=== PATIENT | male | born 1985 | race Two or more races ===

== ENCOUNTER → 2025-06-06 | Outpatient (CLI) | payer BC, SELFPAY ==
[2025-06-06 10:26] LABS: Basophils # (Auto) 0.0 Thou/mm3 (0.0-0.2); Basophils % (Auto) 0 % (0-2.5); Eosinophils # (Auto) 0.1 Thou/mm3 (0.0-0.5); Eosinophils % (Auto) 1 % (0-10); Hematocrit 44.3 % (41.0-53.0); Hemoglobin 15.5 g/dL (13.5-16.0); Immature Granulocytes Auto 0.05 Thou/mm3 (0.00-0.00); Lymphocytes # (Auto) 1.4 Thou/mm3 (1.0-4.8); Lymphocytes % (Auto) 19 % (10-50); Mean Corpuscular HGB Conc 35.0 g/dl (31.0-37.0); Mean Corpuscular Hemoglobin 29.8 pg (25.0-35.0); Mean Corpuscular Volume 85 fL (80-100); Monocytes # (Auto) 0.5 Thou/mm3 (0.0-0.8); Monocytes % (Auto) 6 % (0-12); Neutrophils # (Auto) 5.4 Thou/mm3 (1.8-7.7); Neutrophils % (Auto) 72 % (37-80); Nucleated Red Blood Cell # 0.00 Thou/mm3 (0.00-0.00); Nucleated Red Blood Cell % 0 /100 WBC (0); Platelet Count 236 Thou/mm3 (140-440); RDW Standard Deviation 38.9 fL (35.1-43.9); Red Blood Count 5.21 Miln/mm3 (4.50-5.90); White Blood Count 7.5 Thou/mm3 (3.8-10.6)
[2025-06-06 10:49] LABS: Alanine Aminotransferase 21 U/L (10-49); Albumin, Serum 4.4 gm/dL (3.5-5.0); Albumin/Globulin Ratio 2.1 (1.2-2.2); Alkaline Phosphatase 75 U/L (46-116); Amylase 89 U/L (30-118); Anion Gap 7 (7-16); Aspartate Amino Transferase 22 U/L (0-34); BUN/Creatinine Ratio 14 Ratio (12-20); Bilirubin,Total 0.5 mg/dL (0.3-1.2); Blood Urea Nitrogen 11 mg/dL (9-23); Calcium 9.9 mg/dL (8.3-10.6); Calcium (Corrected) 9.9 mg/dL (8.5-10.1); Carbon Dioxide 29.6 mMol/L (20.0-31.0); Chloride 104 mMol/L (98-107); Creatinine (Component) 0.8 mg/dL (0.6-1.3); Globulin 2.1 gm/dL (2.3-3.5); Glucose 94 mg/dL (74-106); Lipase 36 U/L (12-53); Osmolality,Calculated 280 (275-295); Potassium 4.8 mMol/L (3.4-5.1); Sodium 141 mMol/L (136-145); Total Protein 6.5 gm/dL (5.7-8.2); eGFR > 60 See Note
[2025-06-06 11:28] LABS: Urea Breath Test Positive (Negative)
== END | disposition home or self-care (01) ==
LOC: COPL 09:04
PROVIDERS: PCP Family Medicine; Referring Provider Physician Assistant; Visit Provider Physician Assistant
DX: K21.9 Gastro-esophageal reflux disease without esophagitis (principal); R10.9 Unspecified abdominal pain
CPT/HCPCS: 36415; 80053; 82150; 83013; 83014; 83690; 85025

== ENCOUNTER → 2025-07-02 | Outpatient (CLI) | payer BC, SELFPAY ==
--- NOTE | 2025-07-02 09:00 | XR_ITS ---
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 demonstrates large amounts of stool throughout the colon Patient swallowed thin barium with 17 spot fluoroscopic films of the esophagus and stomach Primary peristaltic esophageal waves Moderate intermittent gastroesophageal reflux There is no stricture the gastroesophageal junction No gastric mass deformity or ulceration There is mucosal fold thickening in the gastric antrum and pylorus No duodenal ulcer Fluoroscopy 0.4 minute radiation dose 47.6 milligray IMPRESSION: Moderate continuous gastroesophageal reflux There is no stricture at the gastroesophageal junction Findings most consistent with antral gastritis, clinical correlation advised
== END | disposition home or self-care (01) ==
LOC: SDIM 08:50
PROVIDERS: PCP Physician Assistant; Referring Provider Physician Assistant; Visit Provider Physician Assistant
DX: K21.9 Gastro-esophageal reflux disease without esophagitis (principal)
CPT/HCPCS: 74240; A4649

== ENCOUNTER → 2025-08-13 | Outpatient (CLI) | payer BC, SELFPAY ==
--- NOTE | 2025-08-13 10:00 | XR_ITS ---
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
== END | disposition home or self-care (01) ==
LOC: SDIM 09:41
PROVIDERS: PCP Physician Assistant; Referring Provider Physician Assistant; Visit Provider Physician Assistant
DX: K30 Functional dyspepsia (principal)
CPT/HCPCS: 74240; A4649

== ENCOUNTER → 2025-09-03 | Outpatient (CLI) | payer BC, SELFPAY ==
--- NOTE | 2025-09-03 11:00 | XR_ITS ---
Examination: Abdomen sonogram, complete Date and time of exam: September 03, 2025, 1116 hours INDICATIONS: Abdominal bloating beginning 1 year ago. Technique: Multiple real-time grayscale transabdominal sonographic images of the abdomen have been obtained. Findings: Normal gallbladder Normal common bile duct 0.2 cm Pancreaticoduodenal Mireles 7 cm Aorta not enlarged Liver 14.9 cm fatty infiltration Normal hepatopetal portal venous flow Patent IVC Right kidney 10.6 cm renal cortex 1.8 cm Left kidney 11.1 cm renal cortex 2.5 cm Moderate renal scar formation Spleen 11.5 cm IMPRESSION: Normal gallbladder Moderate bilateral renal scar formation
== END | disposition home or self-care (01) ==
LOC: CDIM 11:06
PROVIDERS: PCP Family Medicine; Referring Provider Physician Assistant; Visit Provider Physician Assistant
DX: N28.89 Other specified disorders of kidney and ureter (principal)
CPT/HCPCS: 76700

== ENCOUNTER → 2025-09-14 | Outpatient (CLI) | payer BC, SELFPAY ==
[2025-09-14 08:30] LABS: Urea Breath Test Negative (Negative)
== END | disposition home or self-care (01) ==
LOC: COPL 07:39
PROVIDERS: PCP Student in an Organized Health Care Education/Training Program; Referring Provider Student in an Organized Health Care Education/Training Program; Visit Provider Student in an Organized Health Care Education/Training Program
DX: Z01.89 Encounter for other specified special examinations (principal); B96.81 Helicobacter pylori [H. pylori] as the cause of diseases classified elsewhere
CPT/HCPCS: 83013; 83014